=== PATIENT | female | born 1995 | race Caucasian/White ===

== ENCOUNTER → 2016-03-23 | Outpatient (CLI) | payer BC ==
--- NOTE | 2016-03-23 16:56 | DIAGNOSTIC IMAGING REPORT ---
Thyroid ultrasonography CLINICAL HISTORY: Acquired autoimmune hypothyroidism COMPARISON STUDY: No previous studies for comparison. FINDINGS: The right lobe measures 12 x 43 x 10 mm. The left lobe measures 13 x 46 x 8 mm. There is a 2 mm lower pole hypoechoic nodule in the right. There is a 2 mm mid pole hypoechoic nodule in the left with an echogenic center, suspicious for colloid artifact. IMPRESSION: 1. Normal thyroid size and echogenicity 2. No suspicious thyroid nodules identified Electronically signed by: Olman Hector M.D. 03/23/2016 4:55 PM Dictated Date/Time: 03/23/2016 4:53 PM
[2016-03-23 18:01] LABS: THYROID STIMULATING HORMONE 0.783 uIu/ml (0.300-4.500)
== END | disposition home or self-care (01) ==
LOC: C.ULTR 16:19
PROVIDERS: ATTEND Nurse Practitioner
DX: E03.8 Other specified hypothyroidism (principal)